=== PATIENT | female | born 1930 | race Two or more races ===

== ENCOUNTER 2018-08-10 09:13 | Day surgery (SDC) | payer OTHER | END 2018-08-10 11:15 | disposition home or self-care (01) | LOC: ORSCSDS 09:13 | DX: K21.9 Gastro-esophageal reflux disease without esophagitis (principal); Z53.9 Procedure and treatment not carried out, unspecified reason ==

== ENCOUNTER → 2019-08-07 | Outpatient (CLI) | payer OTHER ==
[~2019-08-07] MED LIST: Aspirin EC81 MG PO; CHOL10002 PO; Crestor40 MG PO; INSULANPEN SC; LEVSOD100 PO; LOSA50 PO; MAGNESIUM250 MG PO; PREDNISONE PO; SITA50T2 PO
== END | disposition home or self-care (01) ==
LOC: LAB SHORT 14:15 → LAB 14:15
DX: R19.7 Diarrhea, unspecified (principal)
CPT/HCPCS: 87493

== ENCOUNTER → 2019-08-11 | Outpatient (CLI) | payer OTHER | END | disposition home or self-care (01) | LOC: LAB SHORT 03:00 → LAB 03:00 → LAB FUT 01-24 11:45 | DX: R39.15 Urgency of urination (principal); R19.7 Diarrhea, unspecified; R30.0 Dysuria | CPT/HCPCS: 87015; 87045; 87046; 87205; 87899 ==

== ENCOUNTER → 2020-06-29 | Outpatient (CLI) | payer OTHER | END | disposition home or self-care (01) | LOC: LAB SHORT 09:42 → LAB 09:42 | DX: E11.51 Type 2 diabetes mellitus with diabetic peripheral angiopathy without gangrene (principal); M79.10 Myalgia, unspecified site | CPT/HCPCS: 82043 ==

== ENCOUNTER → 2020-10-22 | Outpatient (CLI) | payer OTHER | END | disposition home or self-care (01) | LOC: LAB 12:47 → LAB SHORT 12:47 | DX: C44.1122 Basal cell carcinoma of skin of right lower eyelid, including canthus (principal) | CPT/HCPCS: 88305 ==